=== PATIENT | female | born 1990 | race Caucasian/White ===

== ENCOUNTER → 2016-09-29 | Outpatient (CLI) | payer OTHER ==
[~2016-09-29] MED LIST: BETAMETHASONE SOD PHOS/ACETATE SUSP 30 MG/5 ML VIAL IM SCH; IBUP-232 PO; LABE200T2 PO; LABETALOL HCL 100 MG/20 ML VIAL ONE; OXYC1TAB63 PO; PREN29TA PO; SENN1TAB PO; Z.0.BCPILL PO
== END ==
LOC: HOBG 10:56
PROVIDERS: ATTEND Obstetrics & Gynecology
DX: Z34.83 Encounter for supervision of other normal pregnancy, third trimester (principal); Z33.1 Pregnant state, incidental
CPT/HCPCS: 96372; J0702

== ENCOUNTER → 2016-09-30 | Outpatient (CLI) | payer OTHER ==
[~2016-09-30] MED LIST changes: +BETAMETHASONE SOD PHOS/ACETATE SUSP 30 MG/5 ML VIAL IM ONE; -BETAMETHASONE SOD PHOS/ACETATE SUSP 30 MG/5 ML VIAL IM SCH; -LABETALOL HCL 100 MG/20 ML VIAL ONE
== END ==
LOC: HOBG 11:22
PROVIDERS: ATTEND Obstetrics & Gynecology
DX: Z34.83 Encounter for supervision of other normal pregnancy, third trimester (principal); Z33.1 Pregnant state, incidental
CPT/HCPCS: 96372; J0702

== ENCOUNTER 2016-10-04 20:40 | Inpatient (IN) | payer OTHER ==
[~2016-10-04] VITALS: Ht 160 cm; Wt 68.9 kg
[~2016-10-04 20:40] MED LIST changes: -BETAMETHASONE SOD PHOS/ACETATE SUSP 30 MG/5 ML VIAL IM ONE; -IBUP-232 PO; -LABE200T2 PO; -OXYC1TAB63 PO; -PREN29TA PO; -SENN1TAB PO
--- NOTE | 2016-10-04 21:01 | PD ---
HPI Chief Complaint Elevated BP Date Seen: Oct 04, 2016 Travel History International Travel<30 Days: No Contact w/Intl Traveler<30Days: No Known Affected Area: No History of Present Illness HPI at 30w 6d, HILDA 12-07-2016, presents with c/o HERNANDEZ, blurry vision, and upper abdomen pain. Patient reports symptoms beginning a few hours prior to presentation. Denies LOF/VB/contractions. Reports steroid course administered last week, on and 09-30, secondary to abnormal 24 hour urine per patient. Para: 1 : 4 History Past Medical History Medical History: Denies Significant Hx Obstetric History Obstetric History VD at 34 weeks- patient reports abnormal LFTs Past Surgical History Surgical History: No Previous Surgery Family History Family History: Negative Social History Alcohol Use: No Tobacco Use: No Substance Abuse: No Allergies-Medications (Allergen,Severity, Reaction): Coded Allergies: No Known Allergies (Verified , 12/27/12) Home Meds Reported Medications Miscellaneous ( Control Pills) Tab1 Tab PO DAILY 12/27/12 Physical Exam AFVSS BP 158/102, 164/101 Narrative GENERAL: Well-nourished, well-developed patient. SKIN: Warm and dry. HEAD: Normocephalic and atraumatic. EYES: No scleral icterus. No injection or drainage. ENT: No nasal drainage noted. Mucous membranes pink. Airway patent. NECK: Supple, trachea midline. No JVD. CARDIOVASCULAR: Regular rate and rhythm without murmurs, gallops, or rubs. RESPIRATORY: Breath sounds equal bilaterally. No accessory muscle use. BREASTS: Bilateral exam showed no masses , no retractions, no nipple discharge. ABDOMEN/GI: Abdomen soft, non-tender, bowel sounds present, no rebound, no guarding Gravid to [-] weeks size Fundal Height: [-] GENITOURINARY: External Genitalia: intact and normal in appearance BUS glands: [-] Cervix: [-] Dilatation: [0] Effacement: [0] Station: [3] Presentation: [-] Membranes: [intact or ruptured] Uterine Contractions: [irritibility] FHT's: Category: [1] Baseline: [130s] Reactive: [-] Variability: [moderate] Decels: [occasional variables] EXTREMITIES: No cyanosis or edema. BACK: Nontender without obvious deformity. No CVA tenderness. NEUROLOGICAL: Awake and alert. Motor and sensory grossly within normal limits. Five out of 5 muscle strength in all muscle groups. Normal speech. MDM Interpretation(s) at 30w 6d, elevated BP. Plan Will admit. Will obtain Pre Eclampsia labs. Will administer antihypertensives and Magnesium Sulfate for seizure prophylaxis. Close monitoring. D/w juarez Barker MD. Diagnosis Diagnosis: Primary Impression: 30 weeks gestation of Additional Impression: Hypertension affecting in third trimester Kathy Ledesma MD Oct 04, 2016 21:01
[2016-10-04] MEDS ORDERED: SODIUM CHLORIDE 0.9% FLUSH 10 ML FLUSH IV FLUSH PRN (21:30)
[2016-10-04] MEDS ORDERED: CALCIUM GLUCONATE 10% 1 GM/10 ML VIAL IV PUSH PRN (21:30)
[2016-10-04] MEDS ORDERED: MAGNESIUM SULFATE 4 GM PREMIX 100 ML ONE (21:35)
[2016-10-04] MEDS ORDERED: MAGNESIUM SULFATE 40 GM PREMIX 1,000 ML ONE (21:36)
[2016-10-04] MEDS: LACTATED RINGER'S 1000 ML INJ 1,000 ML IV SCH (21:41)
[2016-10-04 21:58] LABS: BLOOD, URINE NEG (NEG); COMMENT (UR) CULT NOT INDICATED; CULTURE IF INDICATED CULT NOT INDICATED; GLUCOSE,URINE NEG (NEG); KETONE, URINE NEG (NEG); MUCUS URINE FEW /lpf (OCC); NITRITE,URINE NEG (NEG); SQUAMOUS EPITHELIAL CELL URINE 3 /hpf (0-5); URINE COLOR LIGHT-YELLOW (YELLW/STRAW)
[2016-10-04] MEDS ORDERED: PREN29TA PO (22:17)
[2016-10-04 22:22] LABS: ANION GAP 11 MEQ/L (5-15); AST (GOT) 21 U/L (15-37); BICARBONATE 24.9 MEQ/L (21.0-32.0); BLOOD UREA NITROGEN 14 MG/DL (7-18); CHLORIDE 102 MEQ/L (98-107); GLOMERULAR FILTRATION RATE 80 ML/MIN (>89); POTASSIUM 4.2 MEQ/L (3.5-5.1); SODIUM (NA) 138 MEQ/L (136-145)
[2016-10-04 22:24] LABS: ALKALINE PHOSPHATASE 83 U/L (45-117); ALT (GPT) 36 U/L (10-53); TOTAL BILIRUBIN ADULT 0.4 MG/DL (0.2-1.0)
[2016-10-04] MEDS ORDERED: LABETALOL HCL 100 MG/20 ML VIAL IV PUSH PRN (22:30)
[2016-10-04 22:49] LABS: HEMATOCRIT 41.2 % (35.0-46.0); MEAN CELL VOLUME 91.8 FL (80.0-100.0); MEAN CORPUSCULAR HEMOGLOBIN 32.9 PG (27.0-34.0); MEAN CORPUSCULAR HGB CONC 35.9 % (32.0-36.0); PLATELET COUNT 364 TH/MM3 (150-450); RED BLOOD COUNT 4.49 MIL/MM3 (4.00-5.30); RED CELL DISTRIBUTION WIDTH 12.5 % (11.6-17.2); REVIEW FLAG FINAL; WHITE BLOOD COUNT 14.2 TH/MM3 (4.0-11.0)
[2016-10-04] MEDS ORDERED: ALUMINUM/MAGNESIUM/SIMETH 30 ML CUP PO PRN (23:30)
[2016-10-05] MEDS: ZOLPIDEM TARTRATE 5 MG TAB PO PRN ×2 (02:05→23:30)
[2016-10-05] MEDS: ACETAMINOPHEN 325 MG TAB PO PRN ×3 (02:05→19:33)
[2016-10-05 06:10] LABS: AUTOMATED NEUTROPHIL # 8.2 TH/MM3 (1.8-7.7); BASOPHIL % 0.2 % (0.0-2.0); EOSINOPHIL # 0.1 TH/MM3 (0-0.4); EOSINOPHIL % 0.7 % (0.0-4.0); HEMATOCRIT 34.4 % (35.0-46.0); HEMO FLAGS DIFF FINAL; LYMPH % 22.2 % (9.0-44.0); LYMPHOCYTE # 2.6 TH/MM3 (1.0-4.8); MEAN CELL VOLUME 92.1 FL (80.0-100.0); MEAN CORPUSCULAR HEMOGLOBIN 32.5 PG (27.0-34.0); MEAN CORPUSCULAR HGB CONC 35.3 % (32.0-36.0); MONO % 7.7 % (0.0-8.0); NEUT % 69.2 % (16.0-70.0); PLATELET COUNT 291 TH/MM3 (150-450); RED BLOOD COUNT 3.74 MIL/MM3 (4.00-5.30); RED CELL DISTRIBUTION WIDTH 12.6 % (11.6-17.2); WHITE BLOOD COUNT 11.9 TH/MM3 (4.0-11.0)
[2016-10-05 06:32] LABS: ALKALINE PHOSPHATASE 61 U/L (45-117); ALT (GPT) 31 U/L (10-53); ANION GAP 11 MEQ/L (5-15); AST (GOT) 20 U/L (15-37); BICARBONATE 22.8 MEQ/L (21.0-32.0); BLOOD UREA NITROGEN 14 MG/DL (7-18); CHLORIDE 102 MEQ/L (98-107); GLOMERULAR FILTRATION RATE 99 ML/MIN (>89); MAGNESIUM 6.5 MG/DL (1.5-2.5); POTASSIUM 4.1 MEQ/L (3.5-5.1); SODIUM (NA) 136 MEQ/L (136-145); TOTAL BILIRUBIN ADULT 0.3 MG/DL (0.2-1.0)
--- NOTE | 2016-10-05 08:19 | PD.OB.ANTE ---
Subjective Interval History Quiet night still has HERNANDEZ no UCs was most concerned about the RUQT which was the presenting symptoms with first child and heralded elevated LFTS THey are normal today Objective Lab & Micro Results Test 10/04/16 10/04/16 10/05/16 21:10 21:30 04:55 Urine Color LIGHT-YELLOW Urine Turbidity CLEAR Urine pH 7.0 Urine Specific [place] 1.008 Urine Protein 30 mg/dL Urine Glucose (UA) NEG mg/dL Urine Ketones NEG mg/dL Urine Occult Blood NEG Urine Nitrite NEG Urine Bilirubin NEG Urine Urobilinogen LESS THAN 2.0 MG/DL Urine Leukocyte Esterase NEG Urine RBC LESS THAN 1 /hpf Urine WBC 2 /hpf Urine Squamous Epithelial 3 /hpf Cells Urine Mucus FEW /lpf Microscopic Urinalysis Comment CULT NOT INDICATED White Blood Count 14.2 TH/MM3 11.9 TH/MM3 Red Blood Count 4.49 MIL/MM3 3.74 MIL/MM3 Hemoglobin 14.8 GM/DL 12.1 GM/DL Hematocrit 41.2 % 34.4 % Mean Corpuscular Volume 91.8 FL 92.1 FL Mean Corpuscular Hemoglobin 32.9 PG 32.5 PG Mean Corpuscular Hemoglobin 35.9 % 35.3 % Concent Red Cell Distribution Width 12.5 % 12.6 % Platelet Count 364 TH/MM3 291 TH/MM3 Mean Platelet Volume 8.2 FL 7.7 FL Sodium Level 138 MEQ/L 136 MEQ/L Potassium Level 4.2 MEQ/L 4.1 MEQ/L Chloride Level 102 MEQ/L 102 MEQ/L Carbon Dioxide Level 24.9 MEQ/L 22.8 MEQ/L Anion Gap 11 MEQ/L 11 MEQ/L Blood Urea Nitrogen 14 MG/DL 14 MG/DL Creatinine 0.86 MG/DL 0.72 MG/DL Estimat Glomerular Filtration 80 ML/MIN 99 ML/MIN Rate Random Glucose 83 MG/DL 77 MG/DL Uric Acid 6.0 MG/DL Calcium Level 10.1 MG/DL 7.7 MG/DL Total Bilirubin 0.4 MG/DL 0.3 MG/DL Aspartate Amino Transf 21 U/L 20 U/L (AST/SGOT) Alanine Aminotransferase 36 U/L 31 U/L (ALT/SGPT) Alkaline Phosphatase 83 U/L 61 U/L Lactate Dehydrogenase 223 U/L Total Protein 8.0 GM/DL 6.2 GM/DL Albumin 3.3 GM/DL 2.5 GM/DL Blood Type B POSITIVE Antibody Screen NEGATIVE Blood Bank Comment Neutrophils (%) (Auto) 69.2 % Lymphocytes (%) (Auto) 22.2 % Monocytes (%) (Auto) 7.7 % Eosinophils (%) (Auto) 0.7 % Basophils (%) (Auto) 0.2 % Neutrophils # (Auto) 8.2 TH/MM3 Lymphocytes # (Auto) 2.6 TH/MM3 Monocytes # (Auto) 0.9 TH/MM3 Eosinophils # (Auto) 0.1 TH/MM3 Basophils # (Auto) 0.0 TH/MM3 CBC Comment DIFF FINAL Differential Comment Magnesium Level 6.5 MG/DL Physical Exam GENERAL: Well-nourished, well-developed patient. CARDIOVASCULAR: Regular rate and rhythm without murmurs, gallops, or rubs. RESPIRATORY: Breath sounds equal bilaterally. No accessory muscle use. ABDOMEN/GI: Abdomen soft, non-tender. Fundus: [-] GENITOURINARY: External Genitalia: intact and normal in appearance strip reactive for 31 weeks 24 urine ongoing already received steroids EXTREMITIES: No cyanosis non-tender, without signs of DVT. mild edema Assessment and Plan Assessment and Plan 31 weeks with symptoms of pre eclampsia and negative signs other than elevations in BP which are better now continue Mg through 24 hours urine and then re evaluate let her eat. Erika Moya MD Oct 05, 2016 08:19
[2016-10-05] MEDS: SODIUM CHLORIDE 0.9% FLUSH 10 ML FLUSH IV FLUSH SCH (09:00)
[2016-10-05] MEDS: ONDANSETRON HCL 4 MG/2 ML VIAL IV PUSH PRN (09:25)
[2016-10-05] MEDS: LACTATED RINGER'S 1000 ML INJ 1,000 ML IV SCH (10:39)
[2016-10-05] MEDS ORDERED: ACETAMIN 325 MG/BUTALBITAL 50 MG/CAFFEINE 40 MG TAB PO ONE (12:15)
[2016-10-05] MEDS ORDERED: LORazepam 2 MG/ML VIAL IV PUSH ONE (15:00)
[2016-10-05 15:56] LABS: AUTOMATED NEUTROPHIL # 8.5 TH/MM3 (1.8-7.7); BASOPHIL % 0.2 % (0.0-2.0); EOSINOPHIL # 0.1 TH/MM3 (0-0.4); EOSINOPHIL % 0.7 % (0.0-4.0); HEMO FLAGS DIFF FINAL; LYMPH % 24.6 % (9.0-44.0); LYMPHOCYTE # 3.2 TH/MM3 (1.0-4.8); MEAN CELL VOLUME 92.4 FL (80.0-100.0); MEAN CORPUSCULAR HEMOGLOBIN 32.8 PG (27.0-34.0); MEAN CORPUSCULAR HGB CONC 35.5 % (32.0-36.0); MONO % 7.8 % (0.0-8.0); NEUT % 66.7 % (16.0-70.0); PLATELET COUNT 283 TH/MM3 (150-450); RED BLOOD COUNT 4.11 MIL/MM3 (4.00-5.30); RED CELL DISTRIBUTION WIDTH 12.4 % (11.6-17.2); WHITE BLOOD COUNT 12.8 TH/MM3 (4.0-11.0)
[2016-10-05 16:30] LABS: INDIRECT BILIRUBIN 0.2 MG/DL (0.0-0.8); MAGNESIUM 7.6 MG/DL (1.5-2.5); TOTAL BILIRUBIN ADULT 0.3 MG/DL (0.2-1.0)
[2016-10-05 22:59] LABS: URINE TOTAL PROTEIN TIMED 18.2 MG/DL
--- NOTE | 2016-10-06 09:13 | PD.OB.ANTE ---
Subjective Interval History IUP at 31 weeks, h/o pre-eclampsia and delivery at 34 weeks, got MgSO4 and steroids, uric acid=7, 24 hr urine 787mg protein, other labs normal, BP labile 121/86 Objective Lab & Micro Results Test 10/05/16 10/05/16 14:33 22:20 White Blood Count 12.8 TH/MM3 Red Blood Count 4.11 MIL/MM3 Hemoglobin 13.5 GM/DL Hematocrit 38.0 % Mean Corpuscular Volume 92.4 FL Mean Corpuscular Hemoglobin 32.8 PG Mean Corpuscular Hemoglobin 35.5 % Concent Red Cell Distribution Width 12.4 % Platelet Count 283 TH/MM3 Mean Platelet Volume 7.6 FL Neutrophils (%) (Auto) 66.7 % Lymphocytes (%) (Auto) 24.6 % Monocytes (%) (Auto) 7.8 % Eosinophils (%) (Auto) 0.7 % Basophils (%) (Auto) 0.2 % Neutrophils # (Auto) 8.5 TH/MM3 Lymphocytes # (Auto) 3.2 TH/MM3 Monocytes # (Auto) 1.0 TH/MM3 Eosinophils # (Auto) 0.1 TH/MM3 Basophils # (Auto) 0.0 TH/MM3 CBC Comment DIFF FINAL Differential Comment Uric Acid 7.0 MG/DL Magnesium Level 7.6 MG/DL Total Bilirubin 0.3 MG/DL Direct Bilirubin 0.1 MG/DL Indirect Bilirubin 0.2 MG/DL Aspartate Amino Transf 22 U/L (AST/SGOT) Alanine Aminotransferase 33 U/L (ALT/SGPT) Alkaline Phosphatase 70 U/L Total Protein 6.9 GM/DL Albumin 2.8 GM/DL Urine Total Volume 24 Hours 4325 ML Urine Total Protein 24 Hour 787 MG/24HR Physical Exam GENERAL: Well-nourished, well-developed patient. CARDIOVASCULAR: Regular rate and rhythm without murmurs, gallops, or rubs. RESPIRATORY: Breath sounds equal bilaterally. No accessory muscle use. ABDOMEN/GI: Abdomen soft, non-tender. Fundus: [-] GENITOURINARY: External Genitalia: intact and normal in appearance Cervix: [-] deferred Dilatation: [-] Effacement: [-] Station: [-] Presentation: [-] Membranes: [-] Uterine Contractions: [-] no FHT's: Category: [-] 1 Baseline: [-] Reactive: [-] R Variability: [-] Decels: [-] EXTREMITIES: No cyanosis or edema, non-tender, without signs of DVT. 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
--- NOTE | 2016-10-06 09:15 | HHI.DCPOC ---
Discharge Care Plan Your Health Problems Are: Abdominal pain Report Symptoms to Your Doctor -Temperate above 100.5 degrees -Redness, of incision or excessive or foul smelling drainage -Unusual pain or calf pain -Increased vaginal bleeding -Painful or difficulty urinating -Feelings of extreme sadness or anxiety after 2 weeks Goals to Promote Your Health * To prevent worsening of your condition and complications * To maintain your health at the optimal level Directions to Meet Your Goals Take your medications as prescribed Follow your dietary instruction Follow activity as directed Ensure plenty of rest for recovery Drink fluids for hydration Keep your appointments as scheduled Take your immunizations and boosters as scheduled If your symptoms worsen call your PCP, if no PCP go to Urgent Care Center or Emergency Room Smoking is Dangerous to Your Health. Avoid second hand smoke Call the 24-hour crisis hotline for domestic abuse at Sheila Velarde MD Oct 06, 2016 09:15
[2016-10-07 06:11] LABS: AUTOMATED NEUTROPHIL # 4.7 TH/MM3 (1.8-7.7); BASOPHIL % 0.5 % (0.0-2.0); EOSINOPHIL # 0.1 TH/MM3 (0-0.4); EOSINOPHIL % 1.6 % (0.0-4.0); HEMATOCRIT 37.9 % (35.0-46.0); HEMO FLAGS DIFF FINAL; LYMPH % 35.3 % (9.0-44.0); MEAN CELL VOLUME 92.8 FL (80.0-100.0); MEAN CORPUSCULAR HEMOGLOBIN 33.1 PG (27.0-34.0); MEAN CORPUSCULAR HGB CONC 35.7 % (32.0-36.0); MONO % 8.1 % (0.0-8.0); NEUT % 54.5 % (16.0-70.0); PLATELET COUNT 292 TH/MM3 (150-450); RED BLOOD COUNT 4.08 MIL/MM3 (4.00-5.30); RED CELL DISTRIBUTION WIDTH 12.4 % (11.6-17.2); WHITE BLOOD COUNT 8.6 TH/MM3 (4.0-11.0)
[2016-10-07 06:42] LABS: ALT (GPT) 22 U/L (10-53); ANION GAP 10 MEQ/L (5-15); AST (GOT) 11 U/L (15-37); BICARBONATE 21.6 MEQ/L (21.0-32.0); BLOOD UREA NITROGEN 15 MG/DL (7-18); CHLORIDE 106 MEQ/L (98-107); GLOMERULAR FILTRATION RATE 91 ML/MIN (>89); SODIUM (NA) 138 MEQ/L (136-145); URIC ACID 6.6 MG/DL (2.6-6.0)
[2016-10-07 06:44] LABS: ALKALINE PHOSPHATASE 71 U/L (45-117); TOTAL BILIRUBIN ADULT 0.5 MG/DL (0.2-1.0)
--- NOTE | 2016-10-07 09:20 | PD.OB.ANTE ---
Subjective Diagnosis: (1) Pre-eclampsia Interval History Denies headache today, just feels a "pressure." Denies visual changes or RUQ pain/epigastric pain today. Antepartum ROS: Reports: movement normal, Denies: New complaints, Loss of fluid, Vaginal bleeding, Contractions, Other Objective Lab & Micro Results Test 10/07/16 05:28 White Blood Count 8.6 TH/MM3 Red Blood Count 4.08 MIL/MM3 Hemoglobin 13.5 GM/DL Hematocrit 37.9 % Mean Corpuscular Volume 92.8 FL Mean Corpuscular Hemoglobin 33.1 PG Mean Corpuscular Hemoglobin 35.7 % Concent Red Cell Distribution Width 12.4 % Platelet Count 292 TH/MM3 Mean Platelet Volume 7.7 FL Neutrophils (%) (Auto) 54.5 % Lymphocytes (%) (Auto) 35.3 % Monocytes (%) (Auto) 8.1 % Eosinophils (%) (Auto) 1.6 % Basophils (%) (Auto) 0.5 % Neutrophils # (Auto) 4.7 TH/MM3 Lymphocytes # (Auto) 3.0 TH/MM3 Monocytes # (Auto) 0.7 TH/MM3 Eosinophils # (Auto) 0.1 TH/MM3 Basophils # (Auto) 0.0 TH/MM3 CBC Comment DIFF FINAL Differential Comment Sodium Level 138 MEQ/L Potassium Level 4.0 MEQ/L Chloride Level 106 MEQ/L Carbon Dioxide Level 21.6 MEQ/L Anion Gap 10 MEQ/L Blood Urea Nitrogen 15 MG/DL Creatinine 0.77 MG/DL Estimat Glomerular Filtration 91 ML/MIN Rate Random Glucose 85 MG/DL Uric Acid 6.6 MG/DL Calcium Level 8.3 MG/DL Total Bilirubin 0.5 MG/DL Aspartate Amino Transf 11 U/L (AST/SGOT) Alanine Aminotransferase 22 U/L (ALT/SGPT) Alkaline Phosphatase 71 U/L Total Protein 6.8 GM/DL Albumin 2.8 GM/DL Physical Exam GENERAL: Well-nourished, well-developed patient. CARDIOVASCULAR: Regular rate and rhythm without murmurs, gallops, or rubs. RESPIRATORY: Breath sounds equal bilaterally. No accessory muscle use. ABDOMEN/GI: Abdomen soft, non-tender. Fundus: [-] GENITOURINARY: External Genitalia: intact and normal in appearance Cervix Presentation: ceph Membranes: intact Uterine Contractions: [-] FHT's: reassuring nst yesterday. NST today still pending EXTREMITIES: No cyanosis or edema, non-tender, without signs of DVT. Assessment and Plan Assessment and Plan at 31 weeks 3d with pre-eclampsia. - BP in mild range, denies symptoms of severity today - growth u/s today 13%ile, AC less than 5 %ile, AU doppler elevated MCA normal. BPP 6/8 (no breathing) but reactive nst for gestational age. Cephalic. - PIH labs normal except UA 6.6. 24 hour urine greater than 700mg of protein. - discussed remaining in house until time of delivery, discussed delivery may be imminent - will repeat BPP tomorrow Shirley Garay MD Oct 07, 2016 09:20
[2016-10-07 21:24] LABS: MEAN CORPUSCULAR HGB CONC 36.4 % (32.0-36.0)
[2016-10-08 04:40] LABS: AUTOMATED NEUTROPHIL # 4.5 TH/MM3 (1.8-7.7); BASOPHIL % 0.4 % (0.0-2.0); EOSINOPHIL # 0.2 TH/MM3 (0-0.4); HEMATOCRIT 38.2 % (35.0-46.0); LYMPH % 36.4 % (9.0-44.0); LYMPHOCYTE # 3.2 TH/MM3 (1.0-4.8); MEAN CELL VOLUME 91.3 FL (80.0-100.0); MEAN CORPUSCULAR HEMOGLOBIN 33.2 PG (27.0-34.0); MONO % 10.4 % (0.0-8.0); NEUT % 50.8 % (16.0-70.0); PLATELET COUNT 298 TH/MM3 (150-450); RED BLOOD COUNT 4.18 MIL/MM3 (4.00-5.30); RED CELL DISTRIBUTION WIDTH 12.4 % (11.6-17.2); WHITE BLOOD COUNT 8.9 TH/MM3 (4.0-11.0)
[2016-10-08 04:50] LABS: HEMO FLAGS AUTO DIFF
[2016-10-08 05:11] LABS: ALKALINE PHOSPHATASE 78 U/L (45-117); ALT (GPT) 25 U/L (10-53); ANION GAP 8 MEQ/L (5-15); AST (GOT) 16 U/L (15-37); BICARBONATE 23.5 MEQ/L (21.0-32.0); BLOOD UREA NITROGEN 19 MG/DL (7-18); CHLORIDE 107 MEQ/L (98-107); GLOMERULAR FILTRATION RATE 83 ML/MIN (>89); POTASSIUM 4.2 MEQ/L (3.5-5.1); SODIUM (NA) 138 MEQ/L (136-145); TOTAL BILIRUBIN ADULT 0.3 MG/DL (0.2-1.0); URIC ACID 6.6 MG/DL (2.6-6.0)
[2016-10-08 06:56] LABS: PLATELET ESTIMATE SMEAR NORMAL (NORMAL); PLATELET MORPHOLOGY NORMAL (NORMAL); SCAN/DIFF AUTO DIFF CONFIRMED
--- NOTE | 2016-10-08 07:54 | PD.OB.ANTE ---
Subjective Diagnosis: (1) Pre-eclampsia Diagnosis: Secondary Antepartum ROS: Reports: New complaints (no), Denies: Loss of fluid, Vaginal bleeding, movement normal, Contractions , Other Objective Lab & Micro Results Test 10/08/16 04:14 White Blood Count 8.9 TH/MM3 Red Blood Count 4.18 MIL/MM3 Hemoglobin 13.9 GM/DL Hematocrit 38.2 % Mean Corpuscular Volume 91.3 FL Mean Corpuscular Hemoglobin 33.2 PG Mean Corpuscular Hemoglobin 36.4 % Concent Red Cell Distribution Width 12.4 % Platelet Count 298 TH/MM3 Mean Platelet Volume 7.5 FL Neutrophils (%) (Auto) 50.8 % Lymphocytes (%) (Auto) 36.4 % Monocytes (%) (Auto) 10.4 % Eosinophils (%) (Auto) 2.0 % Basophils (%) (Auto) 0.4 % Neutrophils # (Auto) 4.5 TH/MM3 Lymphocytes # (Auto) 3.2 TH/MM3 Monocytes # (Auto) 0.9 TH/MM3 Eosinophils # (Auto) 0.2 TH/MM3 Basophils # (Auto) 0.0 TH/MM3 CBC Comment AUTO DIFF Differential Comment AUTO DIFF CONFIRMED Platelet Estimate NORMAL Platelet Morphology Comment NORMAL Sodium Level 138 MEQ/L Potassium Level 4.2 MEQ/L Chloride Level 107 MEQ/L Carbon Dioxide Level 23.5 MEQ/L Anion Gap 8 MEQ/L Blood Urea Nitrogen 19 MG/DL Creatinine 0.84 MG/DL Estimat Glomerular Filtration 83 ML/MIN Rate Random Glucose 69 MG/DL Uric Acid 6.6 MG/DL Calcium Level 8.8 MG/DL Total Bilirubin 0.3 MG/DL Aspartate Amino Transf 16 U/L (AST/SGOT) Alanine Aminotransferase 25 U/L (ALT/SGPT) Alkaline Phosphatase 78 U/L Total Protein 6.7 GM/DL Albumin 2.7 GM/DL Physical Exam GENERAL: Well-nourished, well-developed patient. CARDIOVASCULAR: Regular rate and rhythm without murmurs, gallops, or rubs. RESPIRATORY: Breath sounds equal bilaterally. No accessory muscle use. ABDOMEN/GI: Abdomen soft, non-tender. Fundus: [-] GENITOURINARY: External Genitalia: intact and normal in appearance Cervix: DEFERED Membranes: INTACT Uterine Contractions:NO FHT's: Category: 1 Baseline: [-] Reactive: [-] Variability: [-] Decels: [-] EXTREMITIES: No cyanosis or edema, non-tender, without signs of DVT DTR 2+, NO CLONUS NEURO: NONFOCAL. Assessment and Plan Problem List: (1) Pre-eclampsia Status: Acute Assessment and Plan at 31 weeks 10/01 with MILD pre-eclampsia. - BP in mild range, denies symptoms of severity today -Repeat 24 hour urine/labs - discussed remaining in house until time of delivery, discussed delivery may be imminent - will repeat BPP Alberto Howe MD Oct 08, 2016 07:54
[2016-10-08 21:09] LABS: MEAN CORPUSCULAR HGB CONC 36.3 % (32.0-36.0)
[2016-10-08] MEDS ORDERED: LABETALOL HCL 100 MG/20 ML VIAL IV SCH (21:55)
[2016-10-08] MEDS: SODIUM CHLORIDE 0.9% FLUSH 10 ML FLUSH IV FLUSH SCH ×2 (22:02→22:19)
[2016-10-08] MEDS ORDERED: LABETALOL HCL 100 MG TAB PO PRN (22:45)
[2016-10-08] MEDS ORDERED: LABETALOL HCL 100 MG/20 ML VIAL IV PRN (22:45)
[2016-10-09 04:29] LABS: URINE TOTAL PROTEIN TIMED 78.7 MG/DL
[2016-10-09 06:41] LABS: HEMATOCRIT 36.4 % (35.0-46.0); MEAN CELL VOLUME 91.7 FL (80.0-100.0); MEAN CORPUSCULAR HEMOGLOBIN 33.3 PG (27.0-34.0); PLATELET COUNT 294 TH/MM3 (150-450); RED BLOOD COUNT 3.97 MIL/MM3 (4.00-5.30); RED CELL DISTRIBUTION WIDTH 12.4 % (11.6-17.2); WHITE BLOOD COUNT 8.5 TH/MM3 (4.0-11.0)
[2016-10-09 06:48] LABS: REVIEW FLAG FINAL
[2016-10-09 07:09] LABS: URIC ACID 6.6 MG/DL (2.6-6.0)
[2016-10-09] MEDS ORDERED: LABETALOL HCL 100 MG TAB PO SCH (09:00)
[2016-10-09] MEDS: LACTATED RINGER'S 1000 ML INJ 1,000 ML IV SCH ×2 (10:02→21:19)
[2016-10-09] MEDS: MAGNESIUM SULFATE 40 GM PREMIX 1,000 ML IV SCH ×2 (10:02→22:45)
--- NOTE | 2016-10-09 10:07 | PD.OB.ANTE ---
Subjective Diagnosis: (1) Pre-eclampsia Diagnosis: Secondary Interval History recurrent elevated BP 173/110-145/90s ,c/o BV,H/A Antepartum ROS: Reports: New complaints, Other (headache and visual changes) Objective Lab & Micro Results Test 10/09/16 10/09/16 04:00 06:00 Urine Total Volume 24 Hours 2100 ML Urine Total Protein 24 Hour 1653 MG/24HR White Blood Count 8.5 TH/MM3 Red Blood Count 3.97 MIL/MM3 Hemoglobin 13.2 GM/DL Hematocrit 36.4 % Mean Corpuscular Volume 91.7 FL Mean Corpuscular Hemoglobin 33.3 PG Mean Corpuscular Hemoglobin 36.3 % Concent Red Cell Distribution Width 12.4 % Platelet Count 294 TH/MM3 Mean Platelet Volume 7.8 FL Uric Acid 6.6 MG/DL Aspartate Amino Transf 16 U/L (AST/SGOT) Alanine Aminotransferase 23 U/L (ALT/SGPT) Band and Hold Physical Exam GENERAL: Well-nourished, well-developed patient. CARDIOVASCULAR: Regular rate and rhythm without murmurs, gallops, or rubs. RESPIRATORY: Breath sounds equal bilaterally. No accessory muscle use. ABDOMEN/GI: Abdomen soft, non-tender. Fundus: [-] GENITOURINARY: External Genitalia: intact and normal in appearance Cervix: Membranes: intact Uterine Contractions: none FHT's: Category: 1 Baseline: [-] Reactive: [-] Variability: [-] Decels: [-] EXTREMITIES: No cyanosis or edema, non-tender, without signs of DVT. Assessment and Plan Problem List: (1) Pre-eclampsia Status: Acute Assessment and Plan at 31 weeks 57 with severe pre-eclampsia. - BP elevated with clinical signs of progressive pre-eclampsia discussed need for IOL, delivery, start magnesium sulfate and maintain BP <160 / 100 Alberto Howe MD Oct 09, 2016 10:07
[2016-10-09] MEDS ORDERED: SODIUM CHLOR 0.9% 1000 ML INJ 1,000 ML OTHER PRN (10:12)
[2016-10-09] MEDS: SODIUM CHLORIDE 0.9% FLUSH 10 ML FLUSH IV FLUSH SCH ×2 (10:15→21:00)
[2016-10-09] MEDS ORDERED: MISOPROSTOL 25 MCG SUPP VAGINAL ONE ×2 (10:15→15:00)
[2016-10-09] MEDS ORDERED: SODIUM CHLORIDE 0.9% FLUSH 10 ML FLUSH IV FLUSH PRN ×2 (10:15→18:15)
[2016-10-09] MEDS: ACETAMINOPHEN 325 MG TAB PO PRN (14:46)
[2016-10-09 17:54] LABS: AMPHETAMINE, URINE NEG (NEG); BARBITURATES, URINE NEG (NEG); COCAINE, URINE NEG (NEG)
[2016-10-09] MEDS ORDERED: MEPERIDINE HCL 25 MG/ML VIAL IM PRN (18:15)
[2016-10-09] MEDS ORDERED: DINOPROSTONE 10 MG VAG INSERT VAGINAL ONE (18:15)
[2016-10-09] MEDS: ONDANSETRON HCL 4 MG/2 ML VIAL IV PUSH PRN (18:44)
[2016-10-09] MEDS ORDERED: SODIUM CHLORIDE 0.9% FLUSH 10 ML FLUSH IV FLUSH SCH (21:00)
[2016-10-09 21:11] LABS: MEAN CORPUSCULAR HGB CONC 37.2 % (32.0-36.0)
[2016-10-09] MEDS: LABETALOL HCL 200 MG TAB PO SCH (21:20)
[2016-10-10] VITALS (166 sets, daily range): BP systolic 102–135; BP diastolic 63–101; PULSE 47–97; RESP 16–20; TEMP 97.5–98.2; O2SAT 95–100
[2016-10-10] MEDS: ONDANSETRON HCL 4 MG/2 ML VIAL IV PUSH PRN (00:27)
[2016-10-10] MEDS ORDERED: LORazepam 2 MG/ML VIAL IV SCH (03:45)
[2016-10-10] MEDS ORDERED: ACETAMIN 325 MG/BUTALBITAL 50 MG/CAFFEINE 40 MG TAB PO SCH (03:45)
[2016-10-10 05:40] LABS: HEMATOCRIT 35.9 % (35.0-46.0); MEAN CORPUSCULAR HEMOGLOBIN 33.9 PG (27.0-34.0); PLATELET COUNT 268 TH/MM3 (150-450); RED BLOOD COUNT 3.94 MIL/MM3 (4.00-5.30); WHITE BLOOD COUNT 9.7 TH/MM3 (4.0-11.0)
[2016-10-10 05:59] LABS: REVIEW FLAG FINAL
[2016-10-10 06:03] LABS: BICARBONATE 21.2 MEQ/L (21.0-32.0); MAGNESIUM 8.3 MG/DL (1.5-2.5); POTASSIUM 4.3 MEQ/L (3.5-5.1)
[2016-10-10 06:36] LABS: CALCIUM-PROTEIN CORRECTED 7.4 MG/DL (8.5-10.1)
[2016-10-10] MEDS ORDERED: OXYTOCIN 10 UNIT/ML AMP ONE ×2 (08:10→08:27)
[2016-10-10] MEDS ORDERED: ceFAZolin INJ 1,000 MG VIAL ONE (08:13)
[2016-10-10] MEDS ORDERED: EPIDURAL-NALOXONE HCL 0.4 MG/ML AMP IV PRN ×2 (08:30→12:00)
[2016-10-10] MEDS ORDERED: EPIDURAL-DIPHENHYDRAMINE HCL 50 MG/ML VIAL IV PUSH PRN ×2 (08:30→12:00)
[2016-10-10] MEDS ORDERED: EPIDURAL-DIPHENHYDRAMINE HCL 50 MG CAP PO PRN ×2 (08:30→12:00)
[2016-10-10] MEDS ORDERED: EPIDURAL-DO NOT ADMINISTER ANTICOAGULANTS PRN ×2 (08:30→12:00)
[2016-10-10] MEDS ORDERED: EPIDURAL-NO SYSTEMIC NARCOTICS PRN ×2 (08:30→12:00)
[2016-10-10] MEDS ORDERED: LACTATED RINGER'S 1000 ML IV ONE (08:45)
[2016-10-10] MEDS ORDERED: LACTATED RINGER'S 1000 ML IV SCH (08:45)
[2016-10-10] MEDS: LABETALOL HCL 200 MG TAB PO SCH ×2 (09:00→20:45)
[2016-10-10] MEDS ORDERED: ceFAZolin 2 GM PREMIX 50 ML IV SCH (09:00)
[2016-10-10] MEDS ORDERED: CITRIC ACID-SODIUM CITRATE LIQ 30 ML UDC PO SCH (09:00)
--- NOTE | 2016-10-10 09:34 | PD.OB.DELI ---
Procedure Note Section Procedure Performed by Alberto Howe Procedure: Primary Low Transverse Sec Indication for delivery: Nonreassuring heart tracing (bradycardia 105 bpm ), Maternal medical problems (pre-eclampsia) Informed consent obtained: For anesthesia, For procedure Confirmed correct: Patient, Procedure, Site, Time-out taken Anesthesia: Spinal Medication prior to procedure: As documented in eMAR Monitoring during procedure: Blood pressure monitoring, cardiac monitor technician, doppler, Pulse oximetry Urinary catheter: Inserted using sterile technique, To dependent drainage Sterile preparation: Duraprep, In usual fashion Position: Supine with wedge to right side, Supine with safety belt applied Operative Features Skin Incision: Pfannenstiel Uterine Incision: Low transverse w/knife / scissors Membranes Ruptured: Artificially (clear) Presentation: Occiput anterior Delivery of : Uneventful : Male One Minute : 8 Five Minute : 8 Weight: 3# 1oz Status of infant: Viable, Cord blood, Umbilical cord, Nursery present Placenta delivered: Intact Medications: Antibiotics, Oxytocin Estimated blood loss: 600cc Procedure tolerated: Well Maternal Condition: Stable Condition: Stable Alberto Howe MD Oct 10, 2016 09:34
[2016-10-10] MEDS ORDERED: MORPHINE SULFATE PF 5 MG/10 ML VIAL ONE (09:36)
[2016-10-10] MEDS ORDERED: ONDANSETRON HCL 4 MG/2 ML VIAL ONE (09:36)
[2016-10-10 09:38] LABS: BLOOD GAS BASE EXCESS -0.7 mmol/L (-2-2); BLOOD GAS O2 HGB SATURATION 6 % (90-100); CORD BLOOD GAS HCO3 25 mmol/L (21-29); CORD BLOOD GAS PCO2 54 mmHG (34-78); CORD BLOOD GAS PH 7.29 (7.14-7.42); CORD BLOOD GAS PO2 8 mmHG (3.0-40.0); DRAW SITE CORD BLOOD; STAT NO
[2016-10-10] MEDS ORDERED: SIMETHICONE 80 MG CHEWABLE TAB PO PRN (09:45)
[2016-10-10] MEDS ORDERED: OXYTOCIN 30 UNITS-500ML PREMIX 500 ML IV ONE (09:45)
[2016-10-10] MEDS ORDERED: SODIUM CHLORIDE 0.9% FLUSH 10 ML FLUSH IV FLUSH PRN (09:45)
[2016-10-10] MEDS ORDERED: ONDANSETRON HCL 4 MG/2 ML VIAL IV PUSH PRN (09:45)
[2016-10-10] MEDS ORDERED: SODIUM CHLORIDE 0.9% FLUSH 10 ML FLUSH IV FLUSH SCH (09:45)
[2016-10-10] MEDS ORDERED: ACETAMINOPHEN 1000 MG/100 ML VIAL IV ONE ×2 (09:45→09:59)
[2016-10-10] MEDS ORDERED: oxyCODONE/ACETAMINOPHEN 5 MG/325 MG TAB PO PRN (09:45)
[2016-10-10] MEDS ORDERED: LACTATED RINGER'S 1,000 ML BAG IV ONE (10:12)
[2016-10-10] MEDS ORDERED: PROPOFOL 200 MG/20 ML AMP IV ONE (10:12)
--- NOTE | 2016-10-10 11:11 | MP ---
cc: DEV RAUSCH MD DATE OF SURGERY: 10/10/2016 PREOPERATIVE DIAGNOSIS: 31 week intrauterine gestation with developing severe preeclampsia, nonreassuring heart rate tracing with bradycardia, prematurity. PROCEDURE: Primary low transverse section delivery of viable male infant. POSTOPERATIVE DIAGNOSIS 31 week intrauterine gestation with developing severe preeclampsia, non-reassuring heart rate tracing with bradycardia, prematurity. SURGEON: Dr. Sanam Rausch ANESTHESIA: Spinal. ESTIMATED BLOOD LOSS: 600 cc DRAINS: [place] to gravity OPERATIVE FINDINGS Male infant weighing 3 pounds 1 ounce was delivered from vertex, clear fluid, loose nuchal cord. No abnormality, umbilical cord noted. Cord blood gas was obtained, pending results. Apgars were 8 at 1 minutes, 8 at 5. INDICATIONS FOR PROCEDURE The patient was being induced for developing preeclampsia, significant proteinuria and hypertension. The patient failed to progress beyond 1-2 cm after 24 hours of cervical ripening. heart rate tracing developed a mild bradycardia, baseline was 105-100 beats per minute with moderate variability. Recommendation due to the significance of the tracing in the context of developing preeclampsia was to proceed with immediate delivery by section. Consent was signed. The patient received Ancef 2 grams. Neonatology was present. PROCEDURE DESCRIPTION The patient was taken to the operating room in stable condition, underwent spinal anesthetic without complication. [place] was inserted by sterile technique. Sequentials were placed on lower extremities. Lower extremities for VTE prophylaxis. She was prepped and draped. Excellent pain control was noted. Time-out was conducted, agreed by all present in the room. A Pfannenstiel incision was utilized, carried through the skin and subcutaneous layer, identified the fascia which was scored laterally, dissected from the rectus muscle, identifying the rectus in the midline opening the peritoneum sharply, and identifying the lower uterine segment. The peritoneum and bladder flap were developed. A transverse incision was made in the lower uterine segment with clear fluid. The incision extended bluntly and then the vertex was delivered. Loose nuchal cord was identified but otherwise no abnormality. The was delivered in toto. The had immediate cry with tone, and the cord was doubly clamped and cut and the infant was taken to the isolette by the nursery staff present. Cord segment was obtained for cord blood gas assessment. A cord sample was then obtained for typing. The placenta was removed intact and sent for pathology. The uterus was empty, clear, nciole nicely. It was closed with a double layer, first with a running locking suture of 0 Monocryl followed by second imbricating suture of 0 Monocryl. The pelvis was irrigated. No active bleeding was noted. No abnormality of the patient's anatomy reproductive organs. Full count was made and correct. The peritoneum was then closed with a running suture of 2-0 Monocryl. Muscle bellies reapproximated with interrupted mattress suture of 2-0 Monocryl. 0 Vicryl was then used to close the fascia. The subcutaneous space was irrigated. Any small bleeders were cauterized and the space was reapproximated with running suture of 2-0 Monocryl. [place] were used to close the skin edge. Dressing was applied. The final count was correct. The patient was stable. MD BASSEM Suarez/BOGDAN /9:40 AM /10:59 AM
[2016-10-10] MEDS ORDERED: GADODIAMIDE PF 287 MG/ML 20 ML VIAL (for RAD MRI) IV ONE (11:56)
--- NOTE | 2016-10-10 13:28 | RADRPT ---
EXAM DATE/TIME: 10/10/2016 11:47 [facility] COMPARISON: No previous studies available for comparison. INDICATIONS : Cephalgia. Pre-eclampsia. CONTRAST: 15 cc Omniscan (gadodiamide) IV MEDICAL HISTORY : Hypertension. SURGICAL HISTORY : section. ENCOUNTER: Subsequent ACUITY: 4-6 days PAIN SCORE: 3/10 LOCATION: abdominal. TECHNIQUE: Multiplanar, multisequence MRI of the brain was performed both prior to and following the administrat ion of paramagnetic contrast. FINDINGS: There is no evidence for intracranial hemorrhage, mass effect, mass lesions, edema, or extra-axial fl uid collections. The ventricles are normal size for the patient's age. There are no signs of acute infarction for technique. The diffusion portion, and postcontrast portion are unremarkable. The pitu itary gland slightly prominent in size, however no definite mass is identified. CONCLUSION: Unremarkable study. Dilan Hall MD on October 10, 2016 at 13:25 Board Certified Radiologist. This report was verified electronically.
[2016-10-10] MEDS: LACTATED RINGER'S 1000 ML INJ 1,000 ML IV SCH ×2 (14:34→17:51)
[2016-10-10] MEDS ORDERED: OXYTOCIN 30 UNITS-500ML PREMIX 500 ML IV PRN (19:45)
[2016-10-10] MEDS: SODIUM CHLORIDE 0.9% FLUSH 10 ML FLUSH IV FLUSH SCH (21:00)
[2016-10-10] MEDS: oxyCODONE/ACETAMINOPHEN 5 MG/325 MG TAB PO PRN (21:15)
[2016-10-11] VITALS (108 sets, daily range): BP systolic 95–155; BP diastolic 46–104; PULSE 48–81; RESP 16–20; TEMP 97.7–98.3; O2SAT 96–100
[2016-10-11] MEDS ORDERED: MAGNESIUM SULFATE 40 GM PREMIX 1,000 ML IV SCH (05:00)
[2016-10-11] MEDS: oxyCODONE/ACETAMINOPHEN 5 MG/325 MG TAB PO PRN ×4 (05:22→22:02)
[2016-10-11 06:18] LABS: AUTOMATED NEUTROPHIL # 5.1 TH/MM3 (1.8-7.7); BASOPHIL % 0.4 % (0.0-2.0); EOSINOPHIL # 0.1 TH/MM3 (0-0.4); EOSINOPHIL % 0.7 % (0.0-4.0); HEMATOCRIT 30.7 % (35.0-46.0); HEMO FLAGS DIFF FINAL; LYMPH % 32.1 % (9.0-44.0); LYMPHOCYTE # 2.8 TH/MM3 (1.0-4.8); MEAN CELL VOLUME 93.7 FL (80.0-100.0); MEAN CORPUSCULAR HEMOGLOBIN 32.9 PG (27.0-34.0); MEAN CORPUSCULAR HGB CONC 35.1 % (32.0-36.0); MONO % 8.2 % (0.0-8.0); NEUT % 58.6 % (16.0-70.0); PLATELET COUNT 209 TH/MM3 (150-450); RED BLOOD COUNT 3.27 MIL/MM3 (4.00-5.30); RED CELL DISTRIBUTION WIDTH 11.8 % (11.6-17.2); WHITE BLOOD COUNT 8.7 TH/MM3 (4.0-11.0)
[2016-10-11 06:19] LABS: BICARBONATE 25.7 MEQ/L (21.0-32.0); POTASSIUM 4.5 MEQ/L (3.5-5.1)
[2016-10-11 06:33] LABS: CALCIUM-PROTEIN CORRECTED 7.3 MG/DL (8.5-10.1)
--- NOTE | 2016-10-11 07:50 | HHI.OB ---
Subjective Post Operative Day: 1 Remarks On magnesium, tired. no Malik, ruq pain, or blurry vision. baby in nicu Objective Vitals/I&O Vital Signs Date Time Temp Pulse Resp B/P Pulse Ox O2 Delivery O2 Flow Rate FiO2 10/11/16 06:48 16 10/11/16 06:44 53 97 10/11/16 06:39 52 97 10/11/16 06:34 51 98 10/11/16 06:29 51 99 10/11/16 06:24 48 100 10/11/16 06:19 57 99 10/11/16 06:14 58 100 10/11/16 06:09 56 100 10/11/16 06:04 62 100 10/11/16 06:00 60 111/78 10/11/16 05:59 62 100 10/11/16 05:54 55 100 10/11/16 05:49 54 100 10/11/16 05:44 57 100 10/11/16 05:39 58 100 10/11/16 05:34 56 100 10/11/16 05:29 56 100 10/11/16 05:24 61 100 10/11/16 05:19 65 100 10/11/16 05:14 67 100 10/11/16 05:09 67 100 10/11/16 05:04 52 98 10/11/16 05:00 98.3 16 10/11/16 05:00 54 106/67 10/11/16 04:59 56 98 10/11/16 04:54 52 98 10/11/16 04:49 53 98 10/11/16 04:44 53 98 10/11/16 04:39 53 98 10/11/16 04:34 52 99 10/11/16 04:29 50 99 10/11/16 04:24 52 99 10/11/16 04:19 65 99 10/11/16 04:14 61 100 10/11/16 04:09 60 100 10/11/16 04:04 59 100 10/11/16 04:00 55 106/64 10/11/16 03:59 66 99 10/11/16 03:54 60 98 10/11/16 03:49 52 99 10/11/16 03:44 52 99 10/11/16 03:39 51 98 10/11/16 03:34 53 98 4/17/17 03:29 51 4/17/17 03:29 98 4/17/17 03:24 98 417/17 03:24 51 417/17 03:19 98 417/17 03:19 50 417/17 03:14 99 417/17 03:14 48 417/17 03:09 55 100 17/17 03:04 52 98 417/17 03:00 97.7 16 417/17 03:00 50 97/58 417/17 02:59 52 99 17/17 02:54 51 99 417/17 02:49 51 99 417/17 02:44 52 99 17/17 02:39 52 99 17/17 02:34 51 99 17/17 02:29 51 99 17/17 02:24 51 99 17/17 02:19 51 99 17/17 02:14 52 99 17/17 02:09 51 99 17/17 02:04 50 100 17/17 02:00 56 99/61 417/17 01:59 50 4/17/17 01:59 99 /17/17 01:54 50 4/17/17 01:54 100 17/17 01:49 99 17/17 01:49 51 4/17/17 01:44 99 17/17 01:44 50 417/17 01:39 99 17/17 01:39 50 417/17 01:34 99 417/17 01:34 50 4/17/17 01:29 49 4/17/17 01:29 99 4/17/17 01:24 53 4/17/17 01:24 100 4/17/17 01:19 55 99 4/17/17 01:14 51 99 17/17 01:09 49 99 17/17 01:04 48 100 17/17 01:00 49 96/49 4/17/17 01:00 16 417/17 00:59 50 100 4/17/17 00:54 100 4/17/17 00:54 50 4/17/17 00:49 100 417/17 00:49 49 4/17/17 00:44 100 17 00:44 51 1717 00:39 99 17 00:39 51 17 00:34 99 10/11/16 00:34 51 17 00:29 99 17 00:29 51 10/11/16 00:24 52 17 00:24 99 10/11/16 00:19 52 17 00:19 99 10/11/16 00:14 52 10/11/16 00:14 99 10/11/16 00:09 54 99 10/11/16 00:06 55 97/51 10/11/16 00:04 58 99 10/11/16 00:00 53 95/46 10/11/16 00:00 16 10/11/16 00:00 98.0 10/10/16 23:59 99 17 23:59 56 1617 23:54 98 17 23:54 57 17 23:49 56 1617 23:49 97 1617 23:44 56 1617 23:44 97 1617 23:39 97 1617 23:39 56 1617 23:34 55 10/10/16 23:34 97 1617 23:29 56 17 23:29 98 10/10/16 23:24 97 17 23:24 56 17 23:19 57 17 23:19 98 10/10/16 23:14 57 97 17 23:09 57 98 1617 23:04 56 99 10/10/16 23:00 63 106/68 16/17 22:59 68 99 1617 22:54 66 100 1617 22:49 66 99 1617 22:44 63 100 1617 22:39 63 99 1617 22:34 64 100 1617 22:29 64 100 1617 22:24 61 100 1617 22:19 66 100 1617 22:14 61 100 1617 22:09 62 100 16/17 22:04 67 98 /16/17 22:00 58 18 118/75 416/17 21:59 65 100 /16/17 21:54 65 99 /16/17 21:49 64 100 16/17 21:44 63 100 4/16/17 21:39 63 100 16/17 21:34 62 100 16/17 21:29 67 100 16/17 21:24 67 100 16/17 21:19 68 99 16/17 21:14 68 100 16/17 21:09 69 100 16/17 21:04 62 100 16/17 21:00 62 115/76 16/17 20:44 63 100 16/17 20:44 18 16/17 20:39 65 100 16/17 20:34 65 99 16/17 20:29 62 100 16/17 20:24 65 100 16/17 20:19 66 98 16/17 20:14 64 16/17 20:14 99 16/17 20:09 60 /16/17 20:09 99 /16/17 20:04 100 16/17 20:04 61 16/17 20:00 64 117/75 16/17 19:23 98.2 16/17 19:22 18 /16/17 19:19 66 100 16/17 19:14 61 100 16/17 19:09 64 100 16/17 19:04 69 100 16/17 19:00 62 120/85 416/17 18:59 62 100 /16/17 18:54 63 100 /16/17 18:49 60 100 16/17 18:44 67 100 16/17 18:39 63 100 /16/17 18:34 62 100 /16/17 18:30 61 122/80 4/16/17 18:30 18 4/16/17 18:29 64 99 /16/17 18:24 64 100 16/17 18:19 66 99 16/17 18:14 64 100 16/17 18:09 62 100 /16/17 18:04 61 100 4/16/17 18:00 60 127/83 4/16/17 17:59 65 100 4/16/17 17:54 63 100 4/16/17 17:49 63 100 4/16/17 17:44 60 100 4/16/17 17:39 60 100 4/16/17 17:34 60 100 4/16/17 17:30 17 4/16/17 17:30 61 129/89 4/16/17 17:29 63 100 4/16/17 17:24 63 100 4/16/17 17:19 60 100 4/16/17 17:15 60 135/89 4/16/17 17:14 69 100 4/16/17 17:09 61 100 4/16/17 17:04 65 100 4/16/17 17:00 61 130/93 4/16/17 16:59 58 100 4/16/17 16:54 60 100 4/16/17 16:49 63 100 4/16/17 16:45 56 125/87 4/16/17 16:44 63 99 4/16/17 16:39 60 100 4/16/17 16:34 61 100 4/16/17 16:30 97.8 18 4/16/17 16:30 64 127/91 4/16/17 16:29 58 100 4/16/17 16:24 61 100 4/16/17 16:19 97 100 4/16/17 16:15 54 123/89 4/16/17 16:14 55 100 4/16/17 16:09 52 100 4/16/17 16:04 53 100 4/16/17 16:00 51 131/95 4/16/17 15:59 52 100 4/16/17 15:54 58 100 4/16/17 15:49 55 100 4/16/17 15:45 60 125/78 4/16/17 15:44 57 100 4/16/17 15:39 55 100 4/16/17 15:34 56 100 4/16/17 15:30 51 119/73 4/16/17 15:30 18 4/16/17 15:29 53 100 4/16/17 15:24 52 100 4/16/17 15:19 54 100 4/16/17 15:15 55 117/79 4/16/17 15:14 53 100 4/16/17 15:09 50 100 4/16/17 15:04 61 97 4/16/17 15:00 49 111/67 4/16/17 14:59 50 99 /16/17 14:54 49 100 /16/17 14:49 52 99 /16/17 14:45 53 116/67 4/16/17 14:44 47 99 /16/17 14:39 47 99 16/17 14:34 47 99 16/17 14:30 48 116/79 16/17 14:30 17 /16/17 14:29 47 99 /16/17 14:24 49 98 /16/17 14:19 49 98 16/17 14:15 50 114/72 16/17 14:14 48 98 16/17 14:09 49 98 16/17 14:04 49 99 16/17 14:00 49 120/80 16/17 13:59 56 100 16/17 13:54 49 98 16/17 13:49 48 98 /16/17 13:45 49 16 117/74 4/16/17 13:44 50 99 /16/17 13:39 49 99 /16/17 13:34 49 99 /16/17 13:30 48 116/74 4/16/17 13:29 47 99 /16/17 13:24 58 98 /16/17 13:19 57 100 /16/17 13:15 52 126/84 416/17 13:14 60 100 16/17 13:09 71 100 16/17 13:05 53 122/87 /16/17 13:05 18 /16/17 13:04 52 100 /16/17 13:00 55 120/101 4/16/17 12:59 52 100 /16/17 12:55 51 119/85 4/16/17 12:54 53 100 /16/17 12:50 52 17 117/76 4/16/17 12:49 49 100 /16/17 12:45 16 4/16/17 12:45 48 118/79 4/16/17 12:44 48 100 /16/17 12:44 97.5 4/16/17 12:39 48 100 10/10/16 12:34 52 100 10/10/16 12:29 49 100 10/10/16 12:27 54 124/81 10/10/16 10:45 97.8 10/10/16 10:45 52 116/79 10/10/16 10:45 18 10/10/16 10:45 99 10/10/16 10:30 50 110/73 10/10/16 10:30 16 99 10/10/16 10:15 54 20 107/71 98 10/10/16 10:00 57 18 110/71 98 10/10/16 09:40 95 10/10/16 09:40 97.5 10/10/16 09:40 58 18 102/63 Result Diagram: 10/11/16 0509 10/11/16 0509 Objective Remarks GENERAL: Well-nourished, well-developed patient. CARDIOVASCULAR: Regular rate and rhythm without murmurs, gallops, or rubs. RESPIRATORY: Breath sounds equal bilaterally. No accessory muscle use. ABDOMEN/GI: Abdomen soft, non-tender, bowel sounds present. Incision: Clean, dry and intact dressing in place t. Fundus: Firm, non-tender at umbilicus. GENITOURINARY: Light to moderate bleeding. EXTREMITIES: No cyanosis or edema, non-tender, without signs of DVT. Medications and IVs Current Medications Medications (Trade) Dose Ordered Sig/Heather Route Start Time Stop Time Status Last Admin (Calcium Gluconate Inj) 1 gm UNSCH PRN IV PUSH 10/04/16 21:30 (Tylenol) 650 mg Q6H PRN PO 10/04/16 23:30 10/09/16 14:46 (Ambien) 5 mg HS PRN PO 10/04/16 23:30 10/05/16 23:30 (Mag-Al Plus Susp Liq) 30 ml Q6H PRN PO 10/04/16 23:30 (NS Flush) 2 ml BID IV FLUSH 10/09/16 10:15 (NS Flush) 2 ml UNSCH PRN IV FLUSH 10/09/16 10:15 (Trandate) 200 mg Q12HR PO 10/09/16 21:00 10/10/16 20:45 Meperidine HCl 25 mg 25 mg ONCE PRN IM 10/09/16 18:15 10/12/16 18:14 10/09/16 18:44 Lactated Ringer's 1,000 ml @ 150 mls/hr Q6H40M IV 10/10/16 08:45 10/11/16 06:00 (Lr 1000 ml Inj) 1,000 ml @ 100 mls/hr Q10H IV 10/10/16 14:34 10/11/16 10:33 10/10/16 17:51 (NS Flush) 2 ml BID IV FLUSH 10/10/16 09:45 (NS Flush) 2 ml UNSCH PRN IV FLUSH 10/10/16 09:45 (Mylicon Chew) 80 mg QID PRN PO 10/10/16 09:45 (Motrin) 600 mg Q6H PRN PO 10/10/16 09:45 (Percocet 5-325 Mg) 1 tab Q4H PRN PO 10/10/16 09:45 10/11/16 05:22 (Percocet 5-325 Mg) 2 tab Q4H PRN PO 10/10/16 09:45 (Stephanie-Colace) 2 tab Q12H PRN PO 10/10/16 09:45 (M-M-R Ii Inj) 0.5 ml ONCE ONCE SQ 10/11/16 16:00 10/11/16 16:01 (Boostrix Inj) 0.5 ml ONCE ONCE IM 10/11/16 16:00 10/11/16 16:01 (Zofran Inj) 4 mg Q6H PRN IV PUSH 10/10/16 09:45 10/10/16 12:34 Miscellaneous Information NO SYSTEMIC NARCOTICS TO BE GIVEN FO... UNSCH PRN .XX 10/10/16 12:00 10/11/16 11:59 (Narcan Inj) 0.4 mg UNSCH PRN IV 10/10/16 12:00 10/11/16 11:59 (Benadryl Inj) 25 mg Q6H PRN IV PUSH 10/10/16 12:00 10/11/16 11:59 10/10/16 13:15 (Benadryl) 50 mg Q6H PRN PO 10/10/16 12:00 10/11/16 11:59 10/10/16 21:15 Miscellaneous Information ALL NURSING DEPARTMENTS UNSCH PRN .XX 10/10/16 12:00 10/11/16 11:59 (Magnesium Sulfate 40 Gm Premix) 1,000 ml @ 25 mls/hr Q24H IV 10/11/16 05:00 Assessment/Plan Problem List: (1) Pre-eclampsia Assessment and Plan s/p delivery at 31 weeks 10/31 with severe pre-eclampsia s/p ltcd for failed iol and bradycardia - on magensium pp for sz prophy - BP normal to mild range - baby in nicu for prematurity Shirley Garay MD Oct 11, 2016 07:50
[2016-10-11] MEDS: DOCUSATE SODIUM 50 MG/SENNA 8.6 MG TAB PO PRN (09:29)
[2016-10-11] MEDS: LABETALOL HCL 200 MG TAB PO SCH ×2 (09:29→21:00)
[2016-10-11] MEDS: IBUPROFEN 600 MG TAB PO PRN ×2 (09:57→16:31)
[2016-10-11] MEDS ORDERED: DIPHTH/TETANUS/ACEL PERTUSSIS (BOOSTER) 0.5 ML VIAL/PFS IM ONE (16:00)
[2016-10-11] MEDS ORDERED: MEASLES, MUMPS, RUBELLA VACCINE 0.5 ML VIAL SQ ONE (16:00)
[2016-10-11] MEDS ORDERED: diphenhydrAMINE HCL 25 MG CAP PO PRN (22:00)
[2016-10-12 04:00] VITALS: BP 126/69; PULSE 62
[2016-10-12] MEDS: oxyCODONE/ACETAMINOPHEN 5 MG/325 MG TAB PO PRN ×3 (04:17→14:10)
[2016-10-12] MEDS: DOCUSATE SODIUM 50 MG/SENNA 8.6 MG TAB PO PRN (04:17)
[2016-10-12] MEDS: IBUPROFEN 600 MG TAB PO PRN ×2 (04:17→09:49)
[2016-10-12 06:28] LABS: AUTOMATED NEUTROPHIL # 6.1 TH/MM3 (1.8-7.7); BASOPHIL % 0.4 % (0.0-2.0); EOSINOPHIL # 0.1 TH/MM3 (0-0.4); EOSINOPHIL % 1.1 % (0.0-4.0); HEMATOCRIT 33.7 % (35.0-46.0); HEMO FLAGS DIFF FINAL; LYMPH % 30.2 % (9.0-44.0); LYMPHOCYTE # 3.1 TH/MM3 (1.0-4.8); MEAN CORPUSCULAR HEMOGLOBIN 33.2 PG (27.0-34.0); MEAN CORPUSCULAR HGB CONC 35.4 % (32.0-36.0); MONO % 8.6 % (0.0-8.0); NEUT % 59.7 % (16.0-70.0); PLATELET COUNT 239 TH/MM3 (150-450); RED BLOOD COUNT 3.59 MIL/MM3 (4.00-5.30); RED CELL DISTRIBUTION WIDTH 12.3 % (11.6-17.2); WHITE BLOOD COUNT 10.2 TH/MM3 (4.0-11.0)
[2016-10-12 07:06] LABS: ALKALINE PHOSPHATASE 73 U/L (45-117); ALT (GPT) 17 U/L (10-53); ANION GAP 7 MEQ/L (5-15); AST (GOT) 13 U/L (15-37); BICARBONATE 26.1 MEQ/L (21.0-32.0); BLOOD UREA NITROGEN 12 MG/DL (7-18); CHLORIDE 106 MEQ/L (98-107); GLOMERULAR FILTRATION RATE 81 ML/MIN (>89); POTASSIUM 4.1 MEQ/L (3.5-5.1); SODIUM (NA) 139 MEQ/L (136-145); TOTAL BILIRUBIN ADULT 0.3 MG/DL (0.2-1.0)
[2016-10-12 08:20] VITALS: BP 162/82; PULSE 68; RESP 16; TEMP 98.3
[2016-10-12] MEDS: LABETALOL HCL 200 MG TAB PO SCH (08:21)
[2016-10-12] MEDS ORDERED: OXYC1TAB63 PO (08:59)
[2016-10-12] MEDS ORDERED: LABE200T2 PO (08:59)
[2016-10-12] MEDS ORDERED: SENN1TAB PO (08:59)
[2016-10-12] MEDS ORDERED: IBUP-232 PO (08:59)
--- NOTE | 2016-10-12 09:01 | HHI.OB ---
Subjective Post Operative Day: 2 Remarks s/p primary LTCD at 31 wks for severe PreE Objective Vitals/I&O Vital Signs Date Time Temp Pulse Resp B/P Pulse Ox O2 Delivery O2 Flow Rate FiO2 10/12/16 08:20 98.3 68 16 162/82 10/12/16 04:00 62 126/69 10/11/16 22:00 120/70 10/11/16 20:34 110/69 10/11/16 19:30 98.3 81 20 10/11/16 19:30 155/104 10/11/16 16:40 97.9 62 16 123/79 10/11/16 09:36 97.9 Result Diagram: 10/12/1660110/12/16 06 Objective Remarks GENERAL: Well-nourished, well-developed patient. Tearful, sad that & in NICU CARDIOVASCULAR: Regular rate and rhythm without murmurs, gallops, or rubs. RESPIRATORY: Breath sounds equal bilaterally. No accessory muscle use. ABDOMEN/GI: Abdomen soft, non-tender, bowel sounds present. Incision: Clean, dry and intact; nan in place. Fundus: Firm, non-tender at umbilicus. GENITOURINARY: Light to moderate bleeding. EXTREMITIES: No cyanosis or edema, non-tender, without signs of DVT. Medications and IVs Current Medications Medications (Trade) Dose Ordered Sig/Heather Route Start Time Stop Time Status Last Admin (Calcium Gluconate Inj) 1 gm UNSCH PRN IV PUSH 10/04/16 21:30 (Tylenol) 650 mg Q6H PRN PO 10/04/16 23:30 10/09/16 14:46 (Ambien) 5 mg HS PRN PO 10/04/16 23:30 10/05/16 23:30 (Mag-Al Plus Susp Liq) 30 ml Q6H PRN PO 10/04/16 23:30 (NS Flush) 2 ml BID IV FLUSH 10/09/16 10:15 (NS Flush) 2 ml UNSCH PRN IV FLUSH 10/09/16 10:15 (Trandate) 200 mg Q12HR PO 10/09/16 21:00 10/12/16 08:21 Meperidine HCl 25 mg 25 mg ONCE PRN IM 10/09/16 18:15 10/12/16 18:14 10/09/16 18:44 (Lr 1000 ml Inj) 1,000 ml @ 150 mls/hr Q6H40M IV 10/10/16 08:45 10/11/16 06:00 (NS Flush) 2 ml BID IV FLUSH 10/10/16 09:45 (NS Flush) 2 ml UNSCH PRN IV FLUSH 10/10/16 09:45 (Mylicon Chew) 80 mg QID PRN PO 10/10/16 09:45 10/11/16 09:30 (Motrin) 600 mg Q6H PRN PO 10/10/16 09:45 10/12/16 04:17 (Percocet 5-325 Mg) 1 tab Q4H PRN PO 10/10/16 09:45 10/12/16 04:17 (Percocet 5-325 Mg) 2 tab Q4H PRN PO 10/10/16 09:45 (Stephanie-Colace) 2 tab Q12H PRN PO 10/10/16 09:45 10/12/16 04:17 (Zofran Inj) 4 mg Q6H PRN IV PUSH 10/10/16 09:45 10/10/16 12:34 (Benadryl) 25 mg Q6H PRN PO 10/11/16 22:00 10/11/16 22:02 Assessment/Plan Problem List: (1) Pre-eclampsia Assessment and Plan s/p delivery at 31 weeks 5/7 with severe pre-eclampsia s/p ltcd for failed iol and bradycardia - s/p magensium pp for sz prophy - BP normal to mild range on labetalol 200mg po bid; dose skipped last night due to normal BP; this AM elevated again; will plan continue labetalol on d/c and office f/u in 3d for BP check - baby in nicu for prematurity Discharge Planning routine Melissa Rico MD Oct 12, 2016 09:01
[2016-10-12 09:02] VITALS: BP 123/79; PULSE 81
[2016-10-12 12:45] VITALS: BP 120/69; PULSE 68
[2016-10-14 10:23] LABS: HEROIN (6-ACETYLMORPHINE) UR NEG (NEG); OBMETHADONE UR NEG (NEG); PHENCYCLIDINE URINE NEG (NEG)
[2016-10-14 10:24] LABS: BATH SALTS (MDPV) UR NEG (NEG); ECSTASY (MDMA) UR NEG (NEG); GABAPENTIN UR NEG (NEG); HYDROMORPHONE U NEG (NEG); K2 SPICE UR NEG (NEG); OXYCODONE (PERCODAN) NEG (NEG)
== END 2016-10-12 15:58 | disposition home or self-care (01) | DRG 766 ==
LOC: HOBED 20:40 → H2EA 21:38 → H2EB 10-09 18:24 → H2EA 10-10 13:27 → H1EA 10-11 12:35
PROVIDERS: ADMIT Obstetrics & Gynecology; ATTEND Obstetrics & Gynecology
PROC: 10D00Z1 Extraction of Products of Conception, Low, Open Approach (ICD-10-PCS; principal; 2016-10-10)
PROC: 3E0P7GC Introduction of Other Therapeutic Substance into Female Reproductive, Via Natural or Artificial Opening (ICD-10-PCS; 2016-10-10)
DX: O14.14 Severe pre-eclampsia complicating childbirth (principal); O61.9 Failed induction of labor, unspecified; O76 Abnormality in fetal heart rate and rhythm complicating labor and delivery; O69.81X0 Labor and delivery complicated by cord around neck, without compression, not applicable or unspecified; Z3A.31 31 weeks gestation of pregnancy; Z37.0 Single live birth
CPT/HCPCS: 70553; 76816; 76819; 76820; 80048; 80053; 80076; 80307; 80348; 81001; 82570; 82805; 83615; 83735; 84155; 84156; 84157; 84450; 84460; 84550; 85025; 85027; 86592; 86850; 86900; 86901; 88307; 94150; 99284; A9579; G0480; G0481; J0131; J0690; J1200; J2060; J2175; J2274; J2405; J2590; J3475; J7120; Q0163